=== PATIENT | male | born 1990 | race Caucasian/White ===

== ENCOUNTER 2016-08-24 15:07 | Emergency (ER) | payer OTHER ==
[~2016-08-24] VITALS: Ht 401.3 cm; Wt 97.5 kg
[~2016-08-24 15:07] MED LIST: MOTRIN800 MG PO
[2016-08-24 15:33] VITALS: BP 147/81
[2016-08-24] MEDS ORDERED: TYLENOL WITH CO1 TA1 PO (17:52)
== END 2016-08-24 17:54 | disposition home or self-care (01) ==
LOC: ED 15:07
DX: S62.231A Other displaced fracture of base of first metacarpal bone, right hand, initial encounter for closed fracture (principal); X58.XXXA Exposure to other specified factors, initial encounter; Y93.67 Activity, basketball; Y92.89 Other specified places as the place of occurrence of the external cause; Y99.8 Other external cause status

== ENCOUNTER 2021-06-15 16:33 | Emergency (ER) | payer OTHER ==
[~2021-06-15] VITALS: Ht 172.7 cm; Wt 108.9 kg
[~2021-06-15 16:33] MED LIST changes: +TYLENOL WITH CO1 TA1 PO
[2021-06-15 17:05] VITALS: BP 146/79
[2021-06-15 17:41] LABS: BASO % 0.4 % (0.0-1.0); EOS # 0.2 10*3/uL (0.0-0.4); HEMATOCRIT 45.6 % (42.0-52.0); LYMPH # 2.6 10*3/uL (1.3-4.4); LYMPH % 27.5 % (27.0-41.0); MEAN CELL VOLUME 85.6 fl (80.0-94.0); MEAN CORPUSCULAR HGB 29.5 pg (27.0-31.0); MEAN CORPUSCULAR HGB CONC 34.4 g/dl (33.0-37.0); MEAN PLATELET VOLUME 9.6 fl (9.6-12.3); MONO # 0.7 10*3/uL (0.1-1.0); MONO % 7.1 % (3.0-9.0); NEUT % 62.8 % (47.0-73.0); PLATELET COUNT AUTOMATED 279 10*3/uL (130-400); RED BLOOD COUNT 5.33 10*6/uL (4.50-5.90); RED CELL DISTRI WIDTH 12.6 % (0-14.5); WHITE BLOOD COUNT 9.6 10*3/uL (4.8-10.8)
[2021-06-15 18:01] LABS: ALKALINE PHOSPHATASE 68 U/L (45-117); BUN 15 mg/dl (7-24); CHLORIDE 106 mmol/L (98-107); CREATININE 1.22 mg/dL (0.70-1.30); POTASSIUM 3.6 mmol/L (3.5-5.1); SGOT/AST 26 IU/L (3-35); SGPT/ALT 36 U/L (12-78); SODIUM 140 mmol/L (136-145); TOTAL PROTEIN 7.4 gm/dL (6.4-8.2)
[2021-06-15 18:32] LABS: BILIRUBIN Negative (Negative); BLOOD Negative (Negative); CLARITY Clear (Clear); COLOR Yellow (Yellow); GLUCOSE Negative (Negative); KETONE Negative (Negative); LEUKO ESTERASE Negative (Negative); NITRITE Negative (Negative); PH 7.5 (4.5-8.0); UROBILINOGEN 0.2 E.U./dl (0.0-1.0)
[2021-06-15 18:40] LABS: URINE AMPHETAMINES < 1000 (1000ng/ml); URINE BARBITURATES < 200 (200ng/ml); URINE BENZODIAZEPINES < 200 (200ng/ml); URINE CANNABINOIDS (THC) > 50 (50ng/ml); URINE COCAINE < 300 (300ng/ml); URINE METHADONE < 300 (300ng/ml); URINE OPIATES < 300 (300ng/ml)
[2021-06-15 19:08] LABS: URINE PHENCYCLIDINE < 25 (25ng/ml)
[2021-06-15 19:12] LABS: BACTERIA 3+; EPITHELIAL CELLS 0-2
[2021-06-15] MEDS ORDERED: Motrin,Rufen800 MG PO (19:15)
== END 2021-06-15 19:11 | disposition home or self-care (01) ==
LOC: ED 16:33
PROVIDERS: Nurse Practitioner Family
DX: R51.9 Headache, unspecified (principal); R06.02 Shortness of breath; R61 Generalized hyperhidrosis